=== PATIENT | male | born 1990 | race American Indian/Alaskan Native ===

== ENCOUNTER 2020-06-15 19:25 | Emergency (ER) | payer SELFPAY ==
[2020-06-15 19:36] VITALS: BP 124/83
[2020-06-15] MEDS ORDERED: DIPHtheria,PERTUSSIS(ACELL),TETANUS VACCINE/PF 0.5 ML VIAL IM ONE (19:44)
--- NOTE | 2020-06-15 20:10 | XRay Report ---
RIGHT FIRST TOE 3 VIEWS INDICATION / CLINICAL INFORMATION: pain after crush injury to great toe. COMPARISON: None available. FINDINGS: There is a minimally displaced fracture involving the distal tuft of first toe distal phalanx. No oth er fracture seen within the right toes Signer Name: Nahum Beltran MD Signed: 06/15/2020 8:05 PM Workstation Name: [id number]
[2020-06-15] MEDS ORDERED: ceFAZolin 1 GM VIAL IM ONE (20:35)
[2020-06-15] MEDS ORDERED: SODIUM CHLORIDE 0.9% IRR 500 ML BOTTLE IR ONE (20:36)
--- NOTE | 2020-06-15 20:41 | Emergency Department Report ---
ED General Adult HPI - General Chief complaint: Extremity Injury, Lower Stated complaint: RT TOE PAIN Time Seen by Provider: 06/15/20 19:38 Source: patient Mode of arrival: Ambulatory Limitations: No Limitations - History of Present Illness Initial comments: 30-year-old -[place] male patient presents with complaints of right great toe pain x yesterday. Patient reports that during work yesterday, he dropped a pallet on his toe. He rates his pain is 8/10 in severity, describes it as a throbbing type pain, and states it worsens with walking. He denies any swelling or numbness/tingling/weakness of the toe or foot and states there is some bruising and possible bleeding beneath this toe. -: Sudden Treatments Prior to Arrival: none - Related Data Previous Rx's Medication Instructions Recorded Last Taken Type Acetaminophen/Codeine [Tylenol 1 tab PO Q8H PRN #9 tab 06/15/20 Unknown Rx /Codeine # 3 tab] Ibuprofen [Motrin 800 MG tab] 800 mg PO Q8HR PRN #21 tablet 06/15/20 Unknown Rx Mupirocin [Bactroban 2% OINT] 1 applic TP TID 7 Days #1 tube 06/15/20 Unknown Rx cephALEXin [Keflex] 500 mg PO Q8HR 7 Days #21 cap 06/15/20 Unknown Rx Allergies Allergy/AdvReac Type Severity Reaction Status Date / Time No Known Allergies Allergy Verified 06/15/20 21:48 ED Review of Systems ROS: Stated complaint: RT TOE PAIN Other details as noted in HPI Constitutional: denies: chills, diaphoresis, fever, malaise, weakness Respiratory: denies: shortness of breath Musculoskeletal: arthralgia. denies: joint swelling Neurological: denies: numbness, paresthesias, abnormal gait Hematological/Lymphatic: denies: easy bleeding ED Past Medical Hx - Past Medical History Previous Medical History?: No - Surgical History Past Surgical History?: No - Social History Smoking Status: Never Smoker Substance Use Type: Marijuana - Medications Home Medications: Home Medications Medication Instructions Recorded Confirmed Last Taken Type Acetaminophen/Codeine [Tylenol 1 tab PO Q8H PRN #9 tab 06/15/20 Unknown Rx /Codeine # 3 tab] Ibuprofen [Motrin 800 MG tab] 800 mg PO Q8HR PRN #21 tablet 06/15/20 Unknown Rx Mupirocin [Bactroban 2% OINT] 1 applic TP TID 7 Days #1 tube 06/15/20 Unknown Rx cephALEXin [Keflex] 500 mg PO Q8HR 7 Days #21 cap 06/15/20 Unknown Rx ED Physical Exam - General Limitations: No Limitations General appearance: alert, in no apparent distress - Head Head exam: Present: atraumatic, normocephalic - Eye Eye exam: Present: normal appearance. Absent: scleral icterus - Respiratory Respiratory exam: Absent: respiratory distress - Cardiovascular Cardiovascular Exam: Present: regular rate, normal rhythm - Extremities Exam Extremities exam: Present: other (Bruising and tenderness to palpation noted to mid/distal portion of right great toe. There is a 0.5 to 1 cm opening at the base of the nail without active bleeding, erythema, or purulent drainage noted. Ecchymosis is noted; normal sensation and range of motion of the toes noted; no significant swelling or erythema is noted) - Neurological Exam Neurological exam: Present: alert, oriented X3 - Psychiatric Psychiatric exam: Present: normal affect, normal mood - Skin Skin exam: Present: warm, dry, intact, normal color, ecchymosis. Absent: rash, diaphoretic ED Course Vital Signs 06/15/20 06/15/20 19:30 21:50 Temperature 98.6 F Pulse Rate 100 H 72 Respiratory 18 16 Rate Blood Pressure 124/83 O2 Sat by Pulse 100 99 Oximetry ED Medical Decision Making - Radiology Data Radiology results: report reviewed RIGHT FIRST TOE 3 VIEWS INDICATION / CLINICAL INFORMATION: pain after crush injury to great toe. COMPARISON: None available. FINDINGS: There is a minimally displaced fracture involving the distal tuft of first toe distal phalanx. No other fracture seen within the right toes - Medical Decision Making Patient here with complaints of right great toe pain after a crush injury yesterday at work. Bruising, tenderness to palpation, and nonbleeding open wound noted on exam. No evidence of infection at this time noted. X-ray shows mildly displaced distal tuft fracture. Tetanus vaccination was updated and patient was given 2 g of Ancef. Wound was soaked and thoroughly irrigated with Betadine and saline solution. Sterile dressing was placed along with bacitracin ointment. Patient instructed to follow-up with orthopedics tomorrow due to this being an open fracture. Toe was colton taped. Prescription for Keflex and ibuprofen given for home. He is well-appearing and stable for discharge home. Strict return precautions were discussed in detail with patient who verbalizes understanding. Critical care attestation.: If time is entered above; I have spent that time in minutes in the direct care of this critically ill patient, excluding procedure time. ED Disposition Clinical Impression: Open fracture of right great toe Qualifiers: Encounter type: initial encounter Phalanx: distal Fracture alignment: displaced Qualified Code(s): S92.421B - Displaced fracture of distal phalanx of right great toe, initial encounter for open fracture Disposition: TO HOME OR SELFCARE Is pt being admited?: No Condition: Stable Instructions: Toe Fracture (ED), Acute Wound Care (ED) Prescriptions: Mupirocin [Bactroban 2% OINT] 1 applic TP TID 7 Days #1 tube cephALEXin [Keflex] 500 mg PO Q8HR 7 Days #21 cap Ibuprofen [Motrin 800 MG tab] 800 mg PO Q8HR PRN #21 tablet PRN Reason: pain Acetaminophen/Codeine [Tylenol /Codeine # 3 tab] 1 tab PO Q8H PRN #9 tab PRN Reason: Pain , Severe (7-10) Referrals: SHAD YORK MD [Staff Physician] - 24 Hours
[2020-06-15] MEDS ORDERED: NEOMY 3.5 MG/BACIT 400 UNITS/POLY B 5000 UNITS/GM OINT PACKET TP ONE ×2 (21:44→21:46)
== END 2020-06-15 21:50 | disposition home or self-care (01) ==
LOC: ED 19:25
DX: S92.421B Displaced fracture of distal phalanx of right great toe, initial encounter for open fracture (principal); F12.10 Cannabis abuse, uncomplicated; X58.XXXA Exposure to other specified factors, initial encounter; Y93.89 Activity, other specified; Y92.89 Other specified places as the place of occurrence of the external cause; Y99.8 Other external cause status
CPT/HCPCS: 73660; 90471; 90715; 96372; 99283; J0690; A6250